=== PATIENT | female | born 1980 | race Native Hawaiian/Other Pacific Islander ===

== ENCOUNTER 2017-12-09 10:18 | Emergency (ER) | payer OTHER ==
[2017-12-09 13:55] VITALS: BMI 24.6
--- NOTE | 2017-12-09 16:44 | US ---
Date of service: 12/09/2017 PROCEDURE: Limited 3rd trimester ultrasound HISTORY: HOLLIE COMPARISON: None available. TECHNIQUE: Standard protocol for this study/examination. FINDINGS: Amniotic fluid index 12.2 cm. Heart rate: Calculated cardiac rate 150 beats per minute. Closed cervix 3.43 cm. Cephalic presentation. Fundal and posterior placenta. IMPRESSION: Live intrauterine gestation. Amniotic fluid index 12.2 cm corresponds to the 5-50th percentile for a gestational age of 30 weeks. .
--- NOTE | 2017-12-09 17:59 | OBHP ---
Datetime: 12/09/2017 11:22 IP Adm Impression: Term, intrauterine IP Admit Plan: Observation/Evaluation; Discharge home Admit Comment, IP Provider: 37 y/o female at 38.4 weeks GA reports vaginal fluid loss at 6AM this morning. through IVF. She denies vaginal bleeding, abdominal cramping, dizziness, hea dache. She reports good movement. She denies any complications throughout her . She wa s last sexually active in February 2017. PNC: Dr. Frances pmhx:none OBGYN hx: IVF past surgical hx: none social hx: denies etoh, tobacco, recreational drug use Famhx: Mother has HTN home meds: vitamins Allergies: NKDA O: Afebrile Heart: RRR, S1 S2 Chest: CTA B/L, no wheezes Abd: Soft, NT, BS present FHR: 150 w/ moderate variability Centre: irregular contractions SVE: (exam by Dr. Dow) 2 cm cervical dilation, 30-40% effacement Assessment: 37 y/o f at 38.4 wk GA intrauterine w/ suspected ROM Plan: Monitor FHR Speculum exam showed moderate amount of blood-tinged mucous, possibly false positive Nitroblue angelo t Will re-examin patient to assess for fluid pooling}--> exam indefinitive 2PM U/S to assess HOLLIE; HOLLIE 12.2 Kimberlyn Noriega, PGY I ob attending addendum: agree w/ above assessment and plan. pt reexamined w/ speculum. O: When speculum inserted pt jumped up and subsequently had a left lateral vaginal mucosal lacerat ion which was bleeding no fluid in cul de sac visualized. no cervical bleeding present p: await ob us for hollie and recheck pt to confirm no further bleeding from left lateral wall vag mu cosa 2nd ob attending addendum: pt rexamined w/ speculum. no bleeding noted along vaginal mucosa no ff in cul de sac. +cervical mucus present I: No evidence of srom p: labor precautions f/u w/ ob dr as scheduled kick counts. Pelvic Type - PN: Adequate Extremities - PN: Normal Abdomen - PN: Normal Back - PN: Normal Breast - PN: Not Done Lungs - PN: Normal Heart - PN: Normal Thyroid - PN: Normal Neurologic - PN: Normal HEENT - PN: Normal General - PN: Normal Presentation-Admit: Vertex FHR - Baseline A Provider: 150 Membranes, Provider: Intact Contraction Comments Provider: irregular Comments, ACOG Physical Exam: Ultrasound at bedside showed fetus in vertex presentation SSE: +cervical mucus, blood tinged. no fluid in vault w/ and w/out valsalva Gestation - Est Wks by US: 38.4 Pool Provider: Negative Nitrazine Provider: Positive IP Hx Assessment: The History has been Reviewed and is Current EGA AdmitDate IP: 38.4 Vital Signs Provider: Reviewed; Within Normal Limits IP Chief Complaint: Suspected ruptured membranes NICHD Variability Prov Fetus A: Moderate 6-25bpm NICHD Accel Fetus A IP Provider: [id number] FHR Category Provider Fetus A: Category I NICHD Decel Fetus A IP Provider: None Dilatation, Provider: 2 Effacement, Provider: 30 Station, Provider: -2 Genitourinary Exam: Not Done DTRs - PN: Normal
[2017-12-09 22:47] VITALS: BP 106/49; PULSE 70; O2SAT 100
== END 2017-12-09 17:45 | disposition home or self-care (01) ==
LOC: H.EROB2 10:18 → H.L&D 11:02 → H.EROB2 17:45
DX: O34.63 Maternal care for abnormality of vagina, third trimester (principal); N89.8 Other specified noninflammatory disorders of vagina; Z3A.38 38 weeks gestation of pregnancy

== ENCOUNTER 2017-12-11 06:26 | Inpatient (IN) | payer OTHER ==
[2017-12-11] MEDS ORDERED: Lactated Ringer's 1,000 ML IV ONE (07:06)
[2017-12-11] MEDS ORDERED: Lactated Ringer's 1,000 ML IV SCH (07:15)
[2017-12-11] MEDS ORDERED: Fentanyl/Bupivacaine HCl 250 ML EPI ONE (07:30)
--- NOTE | 2017-12-11 07:58 | OBADHP ---
Datetime: 12/11/2017 07:18 Pelvic Type - PN: Adequate Extremities - PN: Normal Abdomen - PN: Normal Back - PN: Normal Breast - PN: Not Done Lungs - PN: Normal Heart - PN: Normal Thyroid - PN: Normal Neurologic - PN: Normal HEENT - PN: Normal General - PN: Normal FHR - Baseline A Provider: 150 Membranes, Provider: Intact Contraction Comments Provider: irregular Gestation - Est Wks by US: 38.6 IP Hx Assessment: The History has been Reviewed and is Current Vital Signs Provider: Reviewed; Within Normal Limits IP Chief Complaint: Uterine contractions NICHD Variability Prov Fetus A: Moderate 6-25bpm NICHD Accel Fetus A IP Provider: [id number] FHR Category Provider Fetus A: Category I NICHD Decel Fetus A IP Provider: None Dilatation, Provider: 4 Genitourinary Exam: Not Done DTRs - PN: Normal EGA AdmitDate IP: 38.6 IP Admit Plan: Admit to unit; Initiate labor protocol Datetime: 12/11/2017 07:00 Admit Comment, IP Provider: 37 y/o female at 38.6 weeks GA reports painful contractions. Pre gnancy through IVF. She endorses vaginal spotting. She denies abdominal cramping, dizziness, headache . She reports good movement. She denies any complications throughout her . She was las t sexually active in February 2017. PNC: Dr. Frances - chart rev'd pmhx:none OBGYN hx: IVF past surgical hx: none social hx: denies etoh, tobacco, recreational drug use Famhx: Mother has HTN home meds: vitamins Allergies: NKDA O: Afebrile Heart: RRR, S1 S2 Chest: CTA B/L, no wheezes Abd: Soft, NT, BS present FHR: 150 w/ moderate variability [place]: irregular contractions SVE: (exam by Dr. Frances) 4 cm cervical dilation Assessment: 37 y/o f at 38.6 wk GA intrauterine c/o painful uterine contractions Patient is in active labor, 4 cm dilated Plan: Admit patient to L_D CBC/type and screen ordered 1L LR bolus 1L LR 125mL/hr NPO Can have epidural, anesthesiologist consulted Kimberlyn Noriega [facility] OB Hospitalist on-call. I saw and examiend this patinet. Discussion about labor, delivey, pain m anagement and . MAHNDO Presentation-Admit: Vertex Pool Provider: Negative IP Adm Impression: Term, intrauterine ; Active labor; Intact Membranes Datetime: 12/09/2017 11:22 Comments, ACOG Physical Exam: Ultrasound at bedside showed fetus in vertex presentation SSE: +cervical mucus, blood tinged. no fluid in vault w/ and w/out valsalva Nitrazine Provider: Positive Effacement, Provider: 30 Station, Provider: -2
[2017-12-11 08:20] LABS: BASO # 0.1 K/uL (0.0-0.2); BASO % 0.5 % (0.0-2.0); EOS % 0.3 % (0.0-4.0); HEMOGLOBIN 13.3 g/dL (12.0-16.0); LYMPH # 0.9 K/uL (1.0-4.3); LYMPH % 6.5 % (20.0-40.0); MEAN CELL VOLUME 91.4 fl (81.0-99.0); MEAN CORPUSCULAR HEMOGLOBIN 30.9 pg (27.0-31.0); MEAN CORPUSCULAR HGB CONC 33.8 g/dL (33.0-37.0); MEAN PLATELET VOLUME 9.2 fl (7.2-11.7); MONO # 0.8 K/uL (0.0-0.8); MONO % 5.5 % (0.0-10.0); NEUT # 12.3 K/uL (1.8-7.0); NEUT % 87.2 % (50.0-75.0); PLATELET COUNT 240 K/uL (130-400); RBC 4.29 Mil/uL (3.80-5.20); RED CELL DISTRIBUTION WIDTH 13.8 % (11.5-14.5); WHITE BLOOD COUNT 14.2 K/uL (4.8-10.8)
[2017-12-11] MEDS ORDERED: OXYTOCIN/0.9 % NS 20 UNIT/1,000 ML BAG IV ONE (09:34)
[2017-12-11] MEDS ORDERED: Oxytocin 30 UNIT 30 UNITS/500 ML BAG IV ONE ×2 (09:34→11:28)
[2017-12-11] MEDS ORDERED: Bupivacaine HCl 0.5% PF (30 ml) Inj ONE (09:40)
[2017-12-11 10:37] LABS: LYMPHOCYTE 5 % (20-50); MONOCYTE 3 % (0-10); NEUTROPHIL 92 % (42-75); PLATELET ESTIMATE NORMAL (NORMAL); TOTAL CELLS COUNTED 100
[2017-12-11] MEDS ORDERED: OXYTOCIN/0.9 % NS 20 UNIT/1,000 ML BAG IV SCH ×2 (11:30→14:30)
[2017-12-11] MEDS ORDERED: Benzocaine/Menthol SPRAY TOP PRN ×2 (11:30→14:30)
--- NOTE | 2017-12-11 12:54 | OBDS ---
DELIVERY PERSONNEL Delivery Doctor: Myla Nicholas MD [id number] Android Developer: Gosia Armstrong RN MATERNAL INFORMATION Delivery Anesthesia: Local; Epidural Medications in Delivery: pitocin Estimated Blood Loss (ml): 600 Placenta Cultured: No Maternal Complications: None RN Comments: Atraumatic of a viable babygirl with Lusty cry. transitioned well assigned a 9/9 APGARs skin to skin initiated immediately after delivery. Patient tolerated delivey well Provider Comments: 37 year old admitted in spontaneous labor. She progressed to complete with n o augmentation. Uncomplicated with delivery of a vigorous female infant. was placed on th e mother's chest and delayed cord clamping was performed along with cord blood collection per the par ents request. Placenta was delivered without complications as well. See repair note above for perinea l and vaginal laceration information. After the repairs were complete there was continued mild vagina l bleeding. The vagina and cervix were explored with no additional alcerations seen. Bimaual exam rev ealed a soft lower uterine segment and methergine was administered. Mom and were left in stabl e condition and will be transported to . Dominique Rosen MD OB Fellow I was present for the delivery and I agree with the resident's note LABOR SUMMARY EDC: 12/19/2017 00:00 No. Babies in Womb: 1 Attempted: No Labor Anesthesia: Epidural LABOR INFORMATION Reason for Induction: Not Applicable Onset of Labor: 12/11/2017 03:00 Complete Dilatation: 12/11/2017 09:30 Oxytocin: N/A Group B Beta Strep: Negative Antibiotics # of Doses: 0 Steroids Given: None Reason Steroids Not Administered: Not Applicable Other Reason Not Administered: not required MEMBRANES Membranes Rupture Method: Spontaneous Rupture of Membranes: 12/11/2017 03:00 Length of Rupture (hrs): 7.38 Amniotic Fluid Color: Clear Amniotic Fluid Amount: Moderate Amniotic Fluid Odor: Normal STAGES OF LABOR Stage 1 hrs: 6 Stage 1 min: 30 Stage 2 hrs: 0 Stage 2 min: 53 Stage 3 hrs: 0 Stage 3 min: 5 Total Time in Labor hrs: 7 Total Time in Labor min: 28 VAGINAL DELIVERY Episiotomy: None Laceration Extension: Second Degree Laceration Type: Perineal; Vaginal Other Laceration: Left labial laceration Laceration Repair: Yes Laceration Repair Note: Initially a second degree perineal laceration was identified and repaired wi th a 2-0 Vicryl in the usual fashion. Then bilateral labial lacerations were seen and also repaired w ith 2-0 Vicryl until hemostasis was achieved. Initial Vag Sponge Count: 5 Final Vag Sponge Count: 2 Initial Vag Sharps Count: 5 Final Vag Sharps Count: 2 Sponge Count Correct: Yes Sharps Count Correct: Yes Count Comment: Count was correct after repair BABY A INFORMATION Infant Delivery Date/Time: 12/11/2017 10:23 Method of Delivery: Vaginal Born in Route : No : N/A Forceps: N/A Vacuum Extraction: N/A Shoulder Dystocia : No SHOULDER DYSTOCIA BABY A Delivery Date/Time: 12/11/2017 10:23 PRESENTATION/POSITION BABY A Presentation: Cephalic Cephalic Presentation: Vertex Vertex Position: Left Occipital Anterior Breech Presentation: N/A PLACENTA INFORMATION BABY A Placenta Delivery Time : 12/11/2017 10:28 Placenta Method of Delivery: Spontaneous Placenta Status: Delivered SCORES BABY A Heart Rate 1 min: >100 bpm Resp Effort 1 min: Good Cry Reflex Irritability 1 min: Cough or Sneeze or Pulls Away Muscle Tone 1 min: Active Motion Color 1 min: Body [place], Extremities Blue Resuscitation Effort 1 min: Tactile Stimulation SCORE 1 MIN: 9 Heart Rate 5 min: >100 bpm Resp Effort 5 min: Good Cry Reflex Irritability 5 min: Cough or Sneeze or Pulls Away Muscle Tone 5 min: Active Motion Color 5 min: Body [place], Extremities Blue Resuscitation Effort 5 min: N/A SCORE 5 MIN: 9 INFORMATION BABY A Gestational Age at Delivery: 38.6 Gestational Status: Term Outcome : Liveborn Condition : Stable Sex: Female WEIGHT/LENGTH BABY A Infant Birthweight (gms): 2910 Infant Weight (lb): 6 Infant Weight (oz): 7 CORD INFORMATION BABY A No. Cord Vessels: 3 Nuchal Cord : Around Neck x1, Loose Cord Blood Taken: Yes Suction: Mouth ASSESSMENT BABY A Complications: None Physical Findings at Delivery: Within Normal Limits Respirations: Appears Normal Pan Puller/ALS Called : No Infant Care By: Riri Armstrong Transferred To: Remains with Mother
[2017-12-12 06:41] LABS: BASO % 0.2 % (0.0-2.0); EOS % 0.3 % (0.0-4.0); HEMOGLOBIN 10.2 g/dL (12.0-16.0); LYMPH % 6.9 % (20.0-40.0); MEAN CELL VOLUME 91.2 fl (81.0-99.0); MEAN CORPUSCULAR HEMOGLOBIN 31.5 pg (27.0-31.0); MEAN CORPUSCULAR HGB CONC 34.5 g/dL (33.0-37.0); MEAN PLATELET VOLUME 9.1 fl (7.2-11.7); MONO # 0.8 K/uL (0.0-0.8); MONO % 5.3 % (0.0-10.0); NEUT % 87.3 % (50.0-75.0); RBC 3.22 Mil/uL (3.80-5.20); WHITE BLOOD COUNT 14.9 K/uL (4.8-10.8)
--- NOTE | 2017-12-13 08:10 | OBDCSUM ---
Datetime: 12/13/2017 08:09 Discharged to, Provider: Home Follow up at, Provider: Pierre Disch Instr Activity: Normal activity Disch Instr Diet: Regular Discharge Instructions, Provider: Routine instructions given Discharge Diagnosis, Provider: Term Delivered Follow up in weeks, Provider: 6w Disch Referrals: None Contraception discussed, Prov: Yes Disch Activity Restrictions: No sexual activity; Nothing in vagina - [place], tampons, douche
--- NOTE | 2017-12-13 08:10 | OBPPN ---
Datetime: 12/13/2017 08:08 PP Pain Prov: Within normal limits PP Nausea Prov: Denies PP Flatus Prov: Yes PP BM Prov: Yes PP Breasts Prov: Normal PP Heart Prov: Normal PP Lungs Prov: Normal PP Abdomen/Uterus Prov: Normal PP Lochia Prov: Normal PP Vulva/Perineum Prov: Normal PP CVA Tenderness Prov: Normal PP Extremities Prov: Normal PP Progress Prov: Normal PP Impression Prov: Normal progression PP Plan Prov: Discharge PP Progress Note Prov: She feels fine ready to go home. 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
[2017-12-13 22:30] VITALS: BP 102/60; PULSE 70; RESP 16; TEMP 98.3; O2SAT 98
== END 2017-12-13 13:50 | disposition home or self-care (01) | DRG 775 ==
LOC: H.EROB2 06:26 → H.L&D 07:06 → H.OB/GYN 14:07
PROVIDERS: ADMIT Obstetrics & Gynecology; ATTEND Obstetrics & Gynecology
PROC: 10E0XZZ Delivery of Products of Conception, External Approach (ICD-10-PCS; principal; 2017-12-11)
PROC: 0KQM0ZZ Repair Perineum Muscle, Open Approach (ICD-10-PCS; 2017-12-11)
PROC: 4A1HXCZ Monitoring of Products of Conception, Cardiac Rate, External Approach (ICD-10-PCS; 2017-12-11)
DX: O69.81X0 Labor and delivery complicated by cord around neck, without compression, not applicable or unspecified (principal); O70.1 Second degree perineal laceration during delivery; Z37.0 Single live birth; Z3A.38 38 weeks gestation of pregnancy; O09.523 Supervision of elderly multigravida, third trimester